=== PATIENT | male | born 1970 | race Caucasian/White ===

== ENCOUNTER 2019-07-03 05:35 | Inpatient (IN) | payer BC ==
[2019-06-23 11:17] LABS: BILIRUBIN,URINE NEGATIVE (NEGATIVE); BLOOD, URINE NEGATIVE (NEGATIVE); CLARITY/URINE CLEAR (CLEAR); COLOR,URINE YELLOW (YELLOW); GLUCOSE,URINE NEGATIVE (NEGATIVE); KETONES,URINE NEGATIVE (NEGATIVE); LEUKOCYTE ESTERASE ,URINE NEGATIVE (NEGATIVE); NITRITE, URINE NEGATIVE (NEGATIVE); PH,URINE 5.5 (5.0-8.0); PROTEIN URINE NEGATIVE (NEGATIVE); UROBILINOGEN,URINE 0.2 (0.2-1.0)
[2019-06-23 11:19] LABS: BASOPHILS # (AUTO) 0.1 K/uL (0.0-0.2); BASOPHILS % (AUTO) 0.6 % (0.0-2.0); EOSINOPHILS # (AUTO) 0.2 K/uL (0.0-0.4); EOSINOPHILS % (AUTO) 1.9 % (0.0-4.0); HEMATOCRIT 40.4 % (36-54); LYMPHOCYTES # (AUTO) 2.4 K/uL (1.0-5.5); LYMPHOCYTES % (AUTO) 24.7 % (20.5-51.5); MEAN CORPUSCULAR HEMOGLOBIN 31 pg (27-31); MEAN CORPUSCULAR HGB CONC 35 % (32-36); MEAN CORPUSCULAR VOLUME 91 fL (79.0-98.0); MONOCYTES # (AUTO) 0.9 K/uL (0.0-1.0); NEUTROPHILS # (AUTO) 6.2 K/uL (1.8-7.7); NEUTROPHILS % (AUTO) 63.8 % (40.0-70.0); PLATELET COUNT (AUTO) 242 K/uL (130-430); RED BLOOD CELL COUNT(AUTO) 4.46 MIL/uL (4.2-6.2); RED CELL DISTRIBUTION WIDTH 13.4 % (9.0-15.0); WHITE BLOOD COUNT (AUTO) 9.8 K/uL (4.8-10.8)
[2019-06-23 11:27] LABS: CALCIUM 9.5 mg/dL (8.4-11.0); CREATININE 1.02 mg/dL (0.55-1.30); POTASSIUM 4.2 mmol/L (3.5-5.1)
[2019-06-23 11:32] LABS: PROTHROMBIN TIME 9.9 SECS (9.5-12.5)
[~2019-07-03] VITALS: Ht 177.8 cm; Wt 111.1 kg
[2019-07-03] MEDS ORDERED: ACETAMINOPHEN 500 MG TABLET ONE (06:01)
[2019-07-03] MEDS ORDERED: CELECOXIB 200 MG CAPSULE ONE (06:01)
[2019-07-03] MEDS ORDERED: TRANEXAMIC ACID 650 MG TABLET ONE (06:02)
[2019-07-03] MEDS ORDERED: oxyCODONE HCL 10 MG TAB.ER.12H PO ONE ×2 (06:02→07:15)
[2019-07-03] MEDS ORDERED: GABAPENTIN 300 MG CAPSULE ONE (06:02)
[2019-07-03] MEDS ORDERED: INDO-12 PO (06:38)
[2019-07-03] MEDS ORDERED: DEXAMETHASONE SOD PHOSPHATE 4 MG/ML VIAL IVP ONE (07:10)
[2019-07-03] MEDS ORDERED: MIDAZOLAM HCL 5 MG/5 ML VIAL IVP ONE (07:10)
[2019-07-03] MEDS ORDERED: ROCURONIUM BROMIDE 10 MG/ML (ZEMURON) IV ONE (07:10)
[2019-07-03] MEDS ORDERED: DILTIAZEM HCL 25 MG/5 ML VIAL IV ONE (07:10)
[2019-07-03] MEDS ORDERED: VANCOMYCIN HCL 1000 MG/VIAL IV ONE (07:10)
[2019-07-03] MEDS ORDERED: fentaNYL CITRATE 250 MCG/5 ML AMP IV ONE (07:10)
[2019-07-03] MEDS ORDERED: PROPOFOL 200MG/ 20ML VIAL (DIPRIVAN) IV ONE (07:10)
[2019-07-03] MEDS ORDERED: TRANEXAMIC ACID 1,000 MG/10 ML VIAL IV ONE (07:10)
[2019-07-03] MEDS ORDERED: KETOROLAC TROMETHAMINE 30 MG VIAL IVP ONE (07:10)
[2019-07-03] MEDS ORDERED: ONDANSETRON HCL 4 MG/2 ML VIAL IVP ONE (07:10)
[2019-07-03] MEDS ORDERED: ROPIVACAINE HCL/PF 0.2% EPIDURAL 200 ML PLAST..BAG EP ONE (07:10)
[2019-07-03] MEDS ORDERED: SEVOFLURANE 15 MIN GAS INH ONE (07:10)
[2019-07-03] MEDS ORDERED: ROPIVACAINE HCL/PF 5 MG/ML 0.5% 30 ML VIAL INJ ONE (07:10)
[2019-07-03] MEDS ORDERED: CEFAZOLIN 2 GM IVPB PREMIX 50 ML IV ONE (07:15)
[2019-07-03] MEDS ORDERED: ACETAMINOPHEN 500 MG TABLET PO ONE (07:15)
[2019-07-03] MEDS ORDERED: NACL 0.9% 1,000 ML IV ONE (07:15)
[2019-07-03] MEDS ORDERED: CELECOXIB 200 MG CAPSULE PO ONE (07:15)
[2019-07-03] MEDS ORDERED: GABAPENTIN 300 MG CAPSULE PO ONE (07:15)
[2019-07-03] MEDS ORDERED: TRANEXAMIC ACID 650 MG TABLET PO ONE (07:15)
[2019-07-03] MEDS ORDERED: POLYMYXIN 500,000/BACIT.10,000 UNITS in NS IRR 1 L IR ONE ×2 (07:29→07:33)
[2019-07-03] MEDS ORDERED: DILTIAZEM HCL 25 MG/5 ML VIAL ONE (08:20)
[2019-07-03] MEDS ORDERED: D5/0.45 NS 1,000 ML IV ONE (09:35)
[2019-07-03] MEDS ORDERED: BISACODYL 10 MG/SUPPOSITORY RC PRN (09:45)
[2019-07-03] MEDS ORDERED: ACETAMINOPHEN 325 MG TABLET PO PRN (09:45)
[2019-07-03] MEDS ORDERED: LR 1,000 ML IV SCH (10:20)
[2019-07-03] MEDS ORDERED: MEPERIDINE HCL/PF 25 MG/ML DISP.SYRIN IVP PRN (10:30)
[2019-07-03] MEDS ORDERED: HYDROmorphone 2 MG/ML VIAL IVP PRN ×2 (10:30)
[2019-07-03] MEDS ORDERED: HYDROmorphone 1 MG INJ. 1 MG/ML AMPUL IVP PRN (10:30)
[2019-07-03 11:17] VITALS: BP_SYST 124
[2019-07-03 12:00] VITALS: BP_SYST 130
[2019-07-03 13:40] VITALS: BP_SYST 124
[2019-07-03] MEDS: CEFAZOLIN 1 GM IVPB PREMIX 50 ML IV SCH ×2 (15:01→21:53)
[2019-07-03] MEDS: HYDROcodone/ACETAMIN 7.5-325 MG TAB PO PRN ×2 (15:02→21:52)
[2019-07-03 16:00] VITALS: BP_SYST 135
[2019-07-03] MEDS ORDERED: CHOLECALCIFEROL (VITAMIN D3) 2,000 UNIT TABLET PO ONE (19:00)
[2019-07-03] MEDS ORDERED: ONDANSETRON HCL 4 MG/2 ML VIAL IVP PRN (19:00)
[2019-07-03 20:00] VITALS: BP_SYST 124
[2019-07-03] MEDS: RIVAROXABAN 10 MG TABLET PO SCH (21:50)
[2019-07-03] MEDS: MORPHINE SULFATE 10 MG/ML VIAL IM PRN (23:40)
[2019-07-03 23:55] VITALS: BP_SYST 125
[2019-07-04] MEDS: HYDROcodone/ACETAMIN 7.5-325 MG TAB PO PRN ×3 (05:43→14:37)
[2019-07-04 06:30] LABS: BASOPHILS % (AUTO) 0.2 % (0.0-2.0); HEMATOCRIT 30.8 % (36-54); HEMOGLOBIN 10.8 g/dL (14.0-18.0); LYMPHOCYTES # (AUTO) 2.2 K/uL (1.0-5.5); LYMPHOCYTES % (AUTO) 16.7 % (20.5-51.5); MEAN CORPUSCULAR HEMOGLOBIN 32 pg (27-31); MEAN CORPUSCULAR HGB CONC 35 % (32-36); MEAN CORPUSCULAR VOLUME 91 fL (79.0-98.0); MONOCYTES # (AUTO) 0.9 K/uL (0.0-1.0); NEUTROPHILS % (AUTO) 76.1 % (40.0-70.0); PLATELET COUNT (AUTO) 218 K/uL (130-430); RED BLOOD CELL COUNT(AUTO) 3.39 MIL/uL (4.2-6.2); RED CELL DISTRIBUTION WIDTH 13.8 % (9.0-15.0); WHITE BLOOD COUNT (AUTO) 13.1 K/uL (4.8-10.8)
[2019-07-04 06:50] LABS: ALBUMIN 2.7 g/dL (3.4-4.8); CALCIUM 8.4 mg/dL (8.4-11.0); CREATININE 0.99 mg/dL (0.55-1.30); POTASSIUM 4.1 mmol/L (3.5-5.1); TOTAL BILIRUBIN 0.3 mg/dL (0.0-1.0)
[2019-07-04 08:00] VITALS: BP_SYST 122
[2019-07-04] MEDS: CHOLECALCIFEROL (VITAMIN D3) 2,000 UNIT TABLET PO SCH (08:33)
[2019-07-04] MEDS: RIVAROXABAN 10 MG TABLET PO SCH (08:35)
[2019-07-04 12:35] VITALS: BP_SYST 116
[2019-07-04] MEDS ORDERED: MAGNESIUM OXIDE 400 MG TABLET PO ONE (14:05)
[2019-07-04] MEDS ORDERED: MULTIVITS,CA,MINERALS/IRON/FA 1 TABLET PO ONE (14:15)
[2019-07-04 16:20] VITALS: BP_SYST 137
[2019-07-04] MEDS: MORPHINE SULFATE 10 MG/ML VIAL IM PRN ×2 (17:41→21:16)
[2019-07-04 20:00] VITALS: BP_SYST 143
[2019-07-05] VITALS: BP_SYST 146
[2019-07-05] MEDS: MORPHINE SULFATE 10 MG/ML VIAL IM PRN ×2 (01:41→10:48)
[2019-07-05] MEDS: HYDROcodone/ACETAMIN 7.5-325 MG TAB PO PRN ×4 (03:05→21:03)
[2019-07-05 07:54] LABS: BASOPHILS % (AUTO) 0.4 % (0.0-2.0); EOSINOPHILS # (AUTO) 0.3 K/uL (0.0-0.4); EOSINOPHILS % (AUTO) 2.5 % (0.0-4.0); HEMATOCRIT 31.9 % (36-54); HEMOGLOBIN 10.7 g/dL (14.0-18.0); LYMPHOCYTES # (AUTO) 2.7 K/uL (1.0-5.5); LYMPHOCYTES % (AUTO) 26.4 % (20.5-51.5); MEAN CORPUSCULAR HEMOGLOBIN 31 pg (27-31); MEAN CORPUSCULAR HGB CONC 34 % (32-36); MEAN CORPUSCULAR VOLUME 92 fL (79.0-98.0); MONOCYTES # (AUTO) 1.1 K/uL (0.0-1.0); MONOCYTES % (AUTO) 10.8 % (1.7-9.3); NEUTROPHILS # (AUTO) 6.2 K/uL (1.8-7.7); NEUTROPHILS % (AUTO) 59.9 % (40.0-70.0); PLATELET COUNT (AUTO) 206 K/uL (130-430); RED BLOOD CELL COUNT(AUTO) 3.47 MIL/uL (4.2-6.2); RED CELL DISTRIBUTION WIDTH 14.2 % (9.0-15.0); WHITE BLOOD COUNT (AUTO) 10.3 K/uL (4.8-10.8)
[2019-07-05 08:00] VITALS: BP_SYST 164
[2019-07-05 08:09] LABS: CALCIUM 8.3 mg/dL (8.4-11.0); CREATININE 0.91 mg/dL (0.55-1.30); POTASSIUM 3.8 mmol/L (3.5-5.1)
[2019-07-05] MEDS: CHOLECALCIFEROL (VITAMIN D3) 2,000 UNIT TABLET PO SCH (08:13)
[2019-07-05] MEDS: RIVAROXABAN 10 MG TABLET PO SCH (08:15)
[2019-07-05] MEDS ORDERED: MAGNESIUM OXIDE 400 MG TABLET PO SCH (09:00)
[2019-07-05] MEDS ORDERED: MULTIVITS,CA,MINERALS/IRON/FA 1 TABLET PO SCH (09:00)
[2019-07-05 12:01] VITALS: BP_SYST 144
[2019-07-05] MEDS: MORPHINE SULFATE 10 MG/ML VIAL IVP PRN (13:46)
[2019-07-05 16:33] VITALS: BP_SYST 129
[2019-07-06] MEDS: MORPHINE SULFATE 10 MG/ML VIAL IVP PRN (00:43)
[2019-07-06 01:11] VITALS: BP_SYST 136
[2019-07-18 10:20] LABS: CALCIUM 8.4 mg/dL (8.4-11.0); CREATININE 0.87 mg/dL (0.55-1.30); POTASSIUM 3.8 mmol/L (3.5-5.1)
[2019-07-18 10:21] LABS: HEMATOCRIT 29.8 % (36-54); HEMOGLOBIN 10.2 g/dL (14.0-18.0); MEAN CORPUSCULAR HEMOGLOBIN 31 pg (27-31); MEAN CORPUSCULAR HGB CONC 34 % (32-36); MEAN CORPUSCULAR VOLUME 91 fL (79.0-98.0); PLATELET COUNT (AUTO) 200 K/uL (130-430); RED BLOOD CELL COUNT(AUTO) 3.26 MIL/uL (4.2-6.2); WHITE BLOOD COUNT (AUTO) 10.3 K/uL (4.8-10.8)
[2019-07-18 10:22] LABS: BASOPHILS % (AUTO) 0.4 % (0.0-2.0); CALCIUM 8.4 mg/dL (8.4-11.0); EOSINOPHILS % (AUTO) 3.6 % (0.0-4.0); LYMPHOCYTES % (AUTO) 25.2 % (20.5-51.5); MONOCYTES % (AUTO) 11.9 % (1.7-9.3); NEUTROPHILS % (AUTO) 58.9 % (40.0-70.0); POTASSIUM 3.8 mmol/L (3.5-5.1)
[2019-07-18 10:23] LABS: CREATININE 0.87 mg/dL (0.55-1.30)
[2019-07-18 10:25] LABS: HEMATOCRIT 29.8 % (36-54); HEMOGLOBIN 10.2 g/dL (14.0-18.0); MEAN CORPUSCULAR HEMOGLOBIN 31 pg (27-31); MEAN CORPUSCULAR HGB CONC 34 % (32-36); MEAN CORPUSCULAR VOLUME 91 fL (79.0-98.0); PLATELET COUNT (AUTO) 200 K/uL (130-430); RED BLOOD CELL COUNT(AUTO) 3.26 MIL/uL (4.2-6.2); WHITE BLOOD COUNT (AUTO) 10.3 K/uL (4.8-10.8)
[2019-07-18 10:26] LABS: BASOPHILS % (AUTO) 0.4 % (0.0-2.0); EOSINOPHILS % (AUTO) 3.6 % (0.0-4.0); LYMPHOCYTES % (AUTO) 25.2 % (20.5-51.5); MONOCYTES % (AUTO) 11.9 % (1.7-9.3); NEUTROPHILS % (AUTO) 58.9 % (40.0-70.0)
== END 2019-07-06 15:20 | disposition home or self-care (01) | DRG 470 ==
LOC: SMU 05:35
PROVIDERS: ADMIT Orthopaedic Surgery; ATTEND Orthopaedic Surgery
PROC: 0SRC0J9 Replacement of Right Knee Joint with Synthetic Substitute, Cemented, Open Approach (ICD-10-PCS; principal; 2019-07-03 07:30)
DX: M17.11 Unilateral primary osteoarthritis, right knee (principal); D62 Acute posthemorrhagic anemia; G89.29 Other chronic pain; E66.9 Obesity, unspecified; Z77.22 Contact with and (suspected) exposure to environmental tobacco smoke (acute) (chronic); M81.0 Age-related osteoporosis without current pathological fracture; Z68.35 Body mass index [BMI] 35.0-35.9, adult; Z79.899 Other long term (current) drug therapy
CPT/HCPCS: 36415; 71046-TC; 80048; 80053; 81003; 83735-TC; 85025; 85610-TC; 85730-TC; 87081; 88305; 88311; 93005; 94010; 94660; 97039; 97116-GP; 97530-GP; C1713; C1776; J0690; J1100; J1885; J2250; J2270; J2405; J2704; J3010; J3370; J3490; J7120